=== PATIENT | male | born 1990 | race Caucasian/White ===

== ENCOUNTER 2019-09-23 14:57 | Emergency (ER) | payer BC, OTHER ==
[~2019-09-23] VITALS: Ht 188 cm; Wt 74.8 kg
[2019-09-23] MEDS ORDERED: AMOXICILLIN 50500 MG PO (15:30)
[2019-09-23] MEDS ORDERED: NAPROSYN500 MG PO (15:30)
[2019-09-23 16:18] VITALS: BP 125/75
== END 2019-09-23 16:19 | disposition home or self-care (01) ==
LOC: ER 14:57
DX: K02.9 Dental caries, unspecified (principal)